=== PATIENT | female | born 1935 | race American Indian/Alaskan Native ===

== ENCOUNTER 2018-12-28 12:02 | Emergency (ER) | payer MEDICARE, BC ==
--- NOTE | 2018-12-28 13:28 | EDM.PDOC ---
ED HPI GENERAL MEDICAL PROBLEM - General Chief Complaint: Genitourinary Problem Stated Complaint: UTI Time Seen by Provider: 12/28/18 12:50 Source of Information: Reports: Patient History Limitations: Reports: No Limitations - History of Present Illness INITIAL COMMENTS - FREE TEXT/NARRATIVE: c/o freq and dysuria x 24h pt with h/o UTIs, last UTI tx by Dr Miramontes in 09/07 x 4, "all large children", last one over 10 lbs saw urologist 15y ago who advised against bladder surgery pt with bladder prolapse, "I feel it come down", no protrusion from introitus no used pessary in past as yearly exam with Dr Miramontes, next apt 03/09 uses pads for incontinence, which has worked well for her voids more at night, less so during the daytime no f/c/d no back pain, no abd pain - Related Data Allergies Allergy/AdvReac Type Severity Reaction Status Date / Time coal tar [From [place]] Allergy Hives Verified 12/28/18 12:31 soap [From [place]] Allergy Hives Verified 12/28/18 12:31 Home Meds: Home Meds Lutein/Minerals/Vit A,C & E [Ocuvite] 1 tab PO DAILY 12/28/18 [History] Sulfamethoxazole/Trimethoprim [Bactrim 400-80 MG] 1 each PO BID #14 tablet 12/28 [Rx] amLODIPine [Norvasc] 5 mg PO DAILY 12/28/18 [History] Past Medical History Cardiovascular History: Reports: Heart Murmur - Past Surgical History GI Surgical History: Reports: Colonoscopy Other GI Surgeries/Procedures: COLON RESECTION Social & Family History - Family History Family Medical History: Noncontributory - Tobacco Use Smoking Status *Q: Never Smoker - Caffeine Use Caffeine Use: Reports: Coffee - Recreational Drug Use Recreational Drug Use: No ED ROS GENERAL - Review of Systems Review Of Systems: See Below Constitutional: Reports: No Symptoms HEENT: Reports: No Symptoms Respiratory: Reports: No Symptoms Cardiovascular: Reports: No Symptoms Endocrine: Reports: No Symptoms GI/Abdominal: Reports: No Symptoms : Reports: Dysuria, Frequency, Incontinence Musculoskeletal: Reports: No Symptoms Skin: Reports: No Symptoms Neurological: Reports: No Symptoms Psychiatric: Reports: No Symptoms Hematologic/Lymphatic: Reports: No Symptoms Immunologic: Reports: No Symptoms ED EXAM, RENAL/ - Physical Exam Exam: See Below Exam Limited By: No Limitations General Appearance: Alert, WD/WN, No Apparent Distress Respiratory/Chest: No Respiratory Distress, Lungs Clear, Normal Breath Sounds, No Accessory Muscle Use, Chest Non-Tender Cardiovascular: Regular Rate, Rhythm, No Edema, No Gallop, No JVD, No Murmur, No Rub GI/Abdominal: Soft, Non-Tender, No Distention, Other (no flank tender) Back Exam: Normal Inspection, Full Range of Motion. No: CVA Tenderness (R), CVA Tenderness (L) Neurological: Alert, Oriented, CN II-XII Intact, Normal Cognition, No Motor/ Sensory Deficits Psychiatric: Normal Affect, Normal Mood Skin Exam: Warm, Dry, Intact, Normal Color, No Rash Lymphatic: No Adenopathy Course - Vital Signs Last Recorded V/S: Last Vital Signs Temp 36.7 C 12/28/18 12:05 Pulse 73 12/28/18 12:05 Resp 16 12/28/18 12:05 BP 145/80 H 12/28/18 12:05 Pulse Ox 97 12/28/18 12:05 - Orders/Labs/Meds Orders: Active Orders 24 hr Category Date Time Status CULTURE URINE [RM] Stat Lab 12/28/18 12:53 Ordered Labs: Laboratory Tests 12/28/18 Range/Units 12:38 Urine Color Yellow (YELLOW) Urine Appearance Cloudy (CLEAR) Urine pH 6.0 (5.0-6.5) Ur Specific [place] 1.015 (1.010-1.025) Urine Protein 30 H (NEGATIVE) mg/dL Urine Glucose (UA) Normal (NORMAL) mg/dL Urine Ketones Negative (NEGATIVE) mg/dL Urine Occult Blood Large H (NEGATIVE) Urine Nitrite Positive H (NEGATIVE) Urine Bilirubin Negative (NEGATIVE) Urine Urobilinogen Normal (NEGATIVE) mg/dL Ur Leukocyte Esterase Large H (NEGATIVE) Urine RBC >100 H (0-5) Urine WBC >100 H (0-5) Ur Squamous Epith Cells Few H (NS,R,O) Urine Bacteria Many H (NS) - Re-Assessments/Exams Free Text/Narrative Re-Assessment/Exam: 12/28/18 13:43 u/a positive for UTI, last UC 09/07 at clinic with >100,000 E coli sensitive to all pt discussed briefly with PCP Dr Miramontes Departure - Departure Time of Disposition: 13:29 Disposition: Home, Self-Care 01 Condition: Good Clinical Impression: UTI, Urinary tract infectious disease - Discharge Information *PRESCRIPTION DRUG MONITORING PROGRAM REVIEWED*: No *COPY OF PRESCRIPTION DRUG MONITORING REPORT IN PATIENT RAVINDRA: No Prescriptions: Sulfamethoxazole/Trimethoprim [Bactrim 400-80 MG] 1 each PO BID #14 tablet Instructions: Urinary Tract Infection, Adult Referrals: Pablo Miramontes MD [Primary Care Provider] - Additional Instructions: For infection, take sulfamethoxazole-trimethoprim DS 1 tab 2 times a day for 7 days. Take 2 doses today. Maintain fluids. See your doctor in 2 days if you are not getting better. Otherwise, see your doctor as scheduled. - My Orders Last 24 Hours: My Active Orders 12/28/18 12:53 CULTURE URINE [RM] Stat - Assessment/Plan Last 24 Hours: My Active Orders 12/28/18 12:53 CULTURE URINE [RM] Stat
== END 2018-12-28 13:49 | disposition home or self-care (01) ==
LOC: FB.ED 12:02
DX: N39.0 Urinary tract infection, site not specified (principal); Z91.09 Other allergy status, other than to drugs and biological substances
CPT/HCPCS: 81001; 87086; 87088; 87186; 99282